=== PATIENT | male | born 1950 | race Caucasian/White ===

== ENCOUNTER 2019-01-29 09:00 | Observation (INO) ==
[2019-01-29] MEDS ORDERED: Naloxone 0.4 MG/ML INJ IVP PRN (09:42)
--- NOTE | 2019-01-29 09:46 | History & Physical Report ---
Date of Encounter: 01/29/19 Time of Encounter: 09:45 24 Hour HP Update - Instructions Instructions: If the History and Physical is less than 30 days old and was completed prior to A.M. admission and or procedure and has NOT been updated on calendar day of procedure please complete this update prior to performing procedure. - Update Patient reports changes in Medical Condition: No Changes in examination, assessment, or condition: No Changes in Medication: No Preop tests/diagnostics Reviewed: Yes Additions to current History and Physical: direct admit by Dr. Pickard for [email or web address]
[2019-01-29 10:33] LABS: Hematocrit 43.8 % (37.5-50.1); Hemoglobin 14.8 g/dL (12.9-16.9); Mean Corpuscular HGB Conc 33.8 g/dL (31.6-35.5); Mean Corpuscular Hemoglobin 32.3 pg (28.0-33.3); Mean Corpuscular Volume 95.6 fL (83.0-100.0); Mean Platelet Volume 10.1 fL (9.4-12.4); Platelet Count 200 K/mcL (140-400); Red Blood Count 4.58 M/mcL (4.19-5.50); Red Cell Distribution Width 12.1 % (11.5-14.5)
[2019-01-29 10:49] LABS: BUN/Creatinine Ratio 15 (6-26); Blood Urea Nitrogen 12 mg/dL (8-23); Calcium 9.3 mg/dL (8.6-10.3); Carbon Dioxide 30 mEq/L (23-29); Chloride 106 mEq/L (98-107); Glucose 106 mg/dL (70-105); Osmolality,Calculated 292 (280-300); Potassium 4.2 mEq/L (3.5-5.1); Sodium 141 mEq/L (136-145); eGFR For African Americans > 60 (> 60); eGFR For Non-African Americans > 60 (> 60)
[2019-01-29] MEDS ORDERED: Apixaban 5 MG TABLET PO SCH ×2 (11:00→21:00)
--- NOTE | 2019-01-29 13:51 | Electrocardiograph Report ---
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
[2019-01-29] MEDS: Apixaban 5 MG TABLET PO SCH (18:16)
[2019-01-30] MEDS: Apixaban 5 MG TABLET PO SCH ×2 (05:56→18:10)
--- NOTE | 2019-01-30 09:40 | Electrophysiology ProgressNote ---
Date of Encounter: 01/30/19 Time of Encounter: 08:12 Assessment and Plan (1) PAF (paroxysmal atrial fibrillation) Current Visit: Yes Status: Chronic Per EP: Remains sinus rhythm on exam. ECG reviewed shows sinus rhythm with QRS stable at 102 ms. Status post 3 doses of Rythmol 150 mg by mouth every 8 hours. Will make nothing by mouth after midnight in case would warrant cardioversion tomorrow, of note would need EVAN prior since on anticoagulation for only one week. Anticipate discharge home tomorrow. Labs stable. Regarding long-term anticoagulation, started on Eliquis 5mg PO BID now one week ago. Denies any active bleeding or blood loss. Discussion w patient/family: The assessment and plan as outlined above was discussed with the patient and/or family members who expressed understanding and agreement. All questions were answered. Thank you for involving us in the care of your patient. Please call with any questions. Subjective Principal diagnosis: PAF Interval history: Denies any concerns or complaints overnight. Denies any chest pain, short of breath, palpitations. Denies any active bleeding or blood loss. Objective Vital Signs, Last 4 Hours Temp Pulse Resp BP Pulse Ox 01/30/19 08:23 97.5 F L 61 17 137/83 98 01/30/19 05:58 97.7 F 68 17 120/71 97 General: Conversant, No Apparent Distress HEENT: Atraumatic, Normocephaly, Mucus Membranes Moist Neck: No JVD, Normal carotid pulses Cardiac: Reg Rate and Rhythm, Normal S1 and S2, No Murmur Lungs: Normal Breath Sounds, No Wheeze, Rales, Rhonchi Neuro: Alert and responsive, No focal deficits noted Abdomen: Soft, Non-Tender Skin: No rashes noted on visualized skin Musculoskeletal: No Chest Wall Tenderness Extremities: No Clubbing, No Cyanosis, No Edema, Normal Pulses Results 01/29/19 10:00 01/29/19 10:00 Lab Results Laboratory Tests 01/29/19 01/29/19 01/29/19 10:00 10:00 10:00 Hgb 14.8 Hct 43.8 Creatinine 0.79 Est GFR (Non-Af Amer) > 60 Magnesium 2.5 Active Medications Apixaban (Eliquis) 5 mg PO 0600,1800 [facility]; Protocol Stop: 07/31/19 18:01 Last Admin: 01/30/19 05:56 Dose: 5 mg Documented by: Metoprolol Tartrate (Lopressor) 25 mg PO BID [facility] Stop: 07/31/19 21:01 Last Admin: 01/29/19 21:07 Dose: 25 mg Documented by: Naloxone HCl (Narcan) 0.4 mg IVP Q2MPRN PRN PRN Reason: SEE COMMENTS Stop: 07/31/19 09:43 Omeprazole (Prilosec) 20 mg PO DAILY@0730 PRN PRN Reason: Heartburn Stop: 07/31/19 10:50 Propafenone HCl (Rhythmol) 150 mg PO Q8H [facility] Stop: 07/31/19 11:01 Last Admin: 01/30/19 03:08 Dose: 150 mg Documented by: - VTE Reasons for not Prescribing Prophylaxis: Not indicated-Anticoagulated or INR therapeutic Consult Discharge Plan - Plan Referrals: NONE,PCP [Primary Care Provider] -
--- NOTE | 2019-01-30 16:19 | Electrocardiograph Report ---
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
[2019-01-31] MEDS: Apixaban 5 MG TABLET PO SCH (05:11)
--- NOTE | 2019-01-31 09:53 | Electrophysiology ProgressNote ---
Date of Encounter: 01/31/19 Time of Encounter: 09:50 Assessment and Plan Discussion w patient/family: The assessment and plan as outlined above was discussed with the patient and/or family members who expressed understanding and agreement. All questions were answered. Thank you for involving us in the care of your patient. Please call with any questions. Subjective Principal diagnosis: PAF Interval history: No acute complaints this AM. Objective Vital Signs, Last 4 Hours Temp Pulse Resp BP Pulse Ox 01/31/19 07:49 97.5 F L 66 18 108/71 97 Vital Signs Temp Pulse Resp BP Pulse Ox 01/31/19 07:49 97.5 F L 66 18 108/71 97 01/31/19 04:51 98 F 66 14 102/64 99 01/31/19 00:21 97.8 F 69 18 119/71 99 01/30/19 19:56 98 F 67 16 129/75 99 01/30/19 16:57 98.1 F 67 16 131/81 99 01/30/19 11:52 97.8 F 62 17 132/79 98 Intake and Output 01/30/19 01/31/19 01/31/19 23:59 07:59 15:59 Other: # Voids 1 General: Conversant HEENT: Atraumatic, Normocephaly, Mucus Membranes Moist Neck: No JVD, Normal carotid pulses Cardiac: Reg Rate and Rhythm, Normal S1 and S2, No Murmur Lungs: Normal Breath Sounds, No Wheeze, Rales, Rhonchi Neuro: Alert and responsive, No focal deficits noted Abdomen: Soft, Non-Tender Skin: No rashes noted on visualized skin Musculoskeletal: No Chest Wall Tenderness Extremities: No Clubbing, No Cyanosis, No Edema, Normal Pulses Results 01/29/19 10:00 01/29/19 10:00 Active Medications Apixaban (Eliquis) 5 mg PO 0600,1800 [facility]; Protocol Stop: 07/31/19 18:01 Last Admin: 01/31/19 05:11 Dose: 5 mg Documented by: Metoprolol Tartrate (Lopressor) 25 mg PO BID [facility] Stop: 07/31/19 21:01 Last Admin: 01/30/19 20:42 Dose: 25 mg Documented by: Naloxone HCl (Narcan) 0.4 mg IVP Q2MPRN PRN PRN Reason: SEE COMMENTS Stop: 07/31/19 09:43 Omeprazole (Prilosec) 20 mg PO DAILY@0730 PRN PRN Reason: Heartburn Stop: 07/31/19 10:50 Propafenone HCl (Rhythmol) 150 mg PO Q8H [facility] Stop: 07/31/19 11:01 Last Admin: 01/31/19 03:07 Dose: 150 mg Documented by: - EKG Interpretation EKG results cardiology: other (12 hr tele AVG HR 64, SR) - VTE Reasons for not Prescribing Prophylaxis: Not indicated-Anticoagulated or INR therapeutic Consult Discharge Plan - Plan Referrals: NONE,PCP [Primary Care Provider] -
--- NOTE | 2019-01-31 09:54 | Discharge Summary ---
Date of Encounter: 01/31/19 - Hospital Course Hospital course: Mr. Coles is a 68 year old male - Time Spent with Patient Total time spent providing and/or coordinating discharge services: - Discharge Medications Prescriptions: No Action Tizanidine HCl 4 mg PO BID PRN PRN Reason: Muscle Spasm Multivitamin [One Daily Multivitamin] 1 tab PO DAILY FSH/Flx/Prm/Blk/Bor/Om3,6,9 #6 [Mfli-Tgis-Adlkyk Oils Softgel] 800 mg PO DAILY Aspirin [Lo-Dose Aspirin EC] 81 mg PO DAILY Apixaban [Eliquis] 5 mg PO Q12H Metoprolol [Lopressor] 25 mg PO BID Omeprazole [PriLOSEC] 20 mg PO DAILY PRN PRN Reason: Indigestion Home Medications: Tizanidine HCl 4 mg PO BID PRN 08/06/16 [History] Apixaban [Eliquis] 5 mg PO Q12H 01/29/19 [History] Aspirin [Lo-Dose Aspirin EC] 81 mg PO DAILY 01/29/19 [History] FSH/Flx/Prm/Blk/Bor/Om3,6,9 #6 [Naji-Nalu-Sdhxbr Oils Softgel] 800 mg PO DAILY 01/29/19 [History] Metoprolol [Lopressor] 25 mg PO BID 01/29/19 [History] Multivitamin [One Daily Multivitamin] 1 tab PO DAILY 01/29/19 [History] Omeprazole [PriLOSEC] 20 mg PO DAILY PRN 01/29/19 [History] Allergies/Adverse Reactions: Allergy/AdvReac Type Severity Reaction Status Date / Time No Known Allergies Allergy Verified 06/02/17 10:36 Date of admission: 01/29/19 09:18 Primary care physician: PCP NONE Physical Examination Vital Signs, Last 4 Hours Temp Pulse Resp BP Pulse Ox 01/31/19 07:49 97.5 F L 66 18 108/71 97 - Discharge Instructions Follow Up With: NONE,PCP [Primary Care Provider] - - VTE Reasons for not Prescribing Prophylaxis: Not indicated-Anticoagulated or INR therapeutic
--- NOTE | 2019-01-31 10:00 | Discharge Summary ---
Date of Encounter: 01/31/19 Time of Encounter: 09:57 - Discharge Diagnosis (1) PAF (paroxysmal atrial fibrillation) Priority: Primary Status: Chronic - Hospital Course Hospital course: Mr. Coles is a 68 year old male with PAF that presented for rythmol initiation--150mg [id number]. S/P 6 doses, maintaining SR. Daily ECGs stable QRS. D/C home in stable condition. Continue BB. Regarding long-term anticoagulation, started on Eliquis 5mg PO BID now one week ago. Denies any active bleeding or blood loss. Will coordinate outpt follow-up in 3-4 weeks. - Time Spent with Patient Total time spent providing and/or coordinating discharge services: Less than 30 minutes - Discharge Medications Prescriptions: New Propafenone [Rhythmol] 150 mg PO Q8H #90 tablet Continued Tizanidine HCl 4 mg PO BID PRN PRN Reason: Muscle Spasm Multivitamin [One Daily Multivitamin] 1 tab PO DAILY FSH/Flx/Prm/Blk/Bor/Om3,6,9 #6 [Otmt-Lxfs-Zaskux Oils Softgel] 800 mg PO DAILY Aspirin [Lo-Dose Aspirin EC] 81 mg PO DAILY Apixaban [Eliquis] 5 mg PO Q12H Omeprazole [PriLOSEC] 20 mg PO DAILY PRN PRN Reason: Indigestion Metoprolol [Lopressor] 25 mg PO BID #60 tablet Home Medications: Tizanidine HCl 4 mg PO BID PRN 08/06/16 [History] Apixaban [Eliquis] 5 mg PO Q12H 01/29/19 [History] Aspirin [Lo-Dose Aspirin EC] 81 mg PO DAILY 01/29/19 [History] FSH/Flx/Prm/Blk/Bor/Om3,6,9 #6 [Iijr-Wyye-Kdpazb Oils Softgel] 800 mg PO DAILY 01/29/19 [History] Multivitamin [One Daily Multivitamin] 1 tab PO DAILY 01/29/19 [History] Omeprazole [PriLOSEC] 20 mg PO DAILY PRN 01/29/19 [History] Metoprolol [Lopressor] 25 mg PO BID #60 tablet 01/31/19 [Rx] Propafenone [Rhythmol] 150 mg PO Q8H #90 tablet 01/31/19 [Rx] Allergies/Adverse Reactions: Allergy/AdvReac Type Severity Reaction Status Date / Time No Known Allergies Allergy Verified 06/02/17 10:36 Date of admission: 01/29/19 09:18 Primary care physician: PCP NONE Discharging clinician: Shahid Bucio Anticipated date of discharge: 01/31/19 Physical Examination Vital Signs, Last 4 Hours Temp Pulse Resp BP Pulse Ox 01/31/19 07:49 97.5 F L 66 18 108/71 97 Vital Signs Temp Pulse Resp BP Pulse Ox 01/31/19 07:49 97.5 F L 66 18 108/71 97 01/31/19 04:51 98 F 66 14 102/64 99 01/31/19 00:21 97.8 F 69 18 119/71 99 01/30/19 19:56 98 F 67 16 129/75 99 01/30/19 16:57 98.1 F 67 16 131/81 99 01/30/19 11:52 97.8 F 62 17 132/79 98 Intake and Output 01/30/19 01/31/19 01/31/19 23:59 07:59 15:59 Other: # Voids 1 General: Conversant, No Apparent Distress HEENT: Atraumatic, Normocephaly, Mucus Membranes Moist Neck: No JVD, Normal carotid pulses Cardiac: Reg Rate and Rhythm, Normal S1 and S2, No Murmur Lungs: Normal Breath Sounds, No Wheeze, Rales, Rhonchi Neuro: Alert and responsive, No focal deficits noted Abdomen: Soft, Non-Tender Skin: No rashes noted on visualized skin Musculoskeletal: No Chest Wall Tenderness Extremities: No Clubbing, No Cyanosis, No Edema, Normal Pulses - Patient Status Disposition: Home, Self-Care Condition: Fair Functional capacity at discharge: independent ambulation Overall status at discharge: patient is back to baseline - Discharge Instructions Follow Up With: NONE,PCP [Primary Care Provider] - - Diet and Activity Activity: increase activity as tolerated Diet: advance to your usual diet - VTE Reasons for not Prescribing Prophylaxis: Not indicated-Anticoagulated or INR therapeutic
[2019-01-31 11:33] VITALS: BP 120/73
--- NOTE | 2019-01-31 12:58 | Electrocardiograph Report ---
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
--- NOTE | 2019-01-31 13:12 | Electrocardiograph Report ---
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
== END 2019-01-31 11:42 | disposition home or self-care (01) ==
LOC: 2ANU
PROVIDERS: ADMIT Emergency Medicine; ATTEND Emergency Medicine

== ENCOUNTER 2019-02-26 10:09 | Observation (INO) ==
[2019-02-26] MEDS ORDERED: 0.9 % Sodium Chloride 1,000 ML IVC ONE ×2 (10:29→11:23)
[2019-02-26] MEDS ORDERED: *HR* Metoprolol 5 MG/5 ML VIAL IVP ONE (10:30)
[2019-02-26 11:00] LABS: Basophils % 0.3 %; Eosinophils # 0.2 K/mcL (0.0-0.6); Eosinophils % 2.1 %; Hematocrit 41.9 % (37.5-50.1); Hemoglobin 13.7 g/dL (12.9-16.9); Immature Granulocytes % 0.4 % (0-4); Lymphocytes # 0.9 K/mcL (0.6-4.6); Lymphocytes % 9.5 %; Mean Corpuscular HGB Conc 32.7 g/dL (31.6-35.5); Mean Corpuscular Hemoglobin 31.6 pg (28.0-33.3); Mean Corpuscular Volume 96.5 fL (83.0-100.0); Mean Platelet Volume 10.9 fL (9.4-12.4); Monocytes # 1.4 K/mcL (0.0-1.3); Monocytes % 14.6 %; Neutrophils # 7.1 K/mcL (1.6-8.9); Platelet Count 164 K/mcL (140-400); Red Blood Count 4.34 M/mcL (4.19-5.50); Red Cell Distribution Width 12.3 % (11.5-14.5); Segmented Neutrophils % 73.1 %; White Blood Count 9.7 K/mcL (4.3-11.1)
[2019-02-26 11:07] LABS: INR 1.7; Prothrombin Time 18.9 Seconds (9.4-12.1)
[2019-02-26 11:09] LABS: Activated Partial Thrombo Time 37.4 Seconds (26.0-36.0)
[2019-02-26 11:24] LABS: BUN/Creatinine Ratio 9 (6-26); Blood Urea Nitrogen 10 mg/dL (8-23); Calcium 9.2 mg/dL (8.6-10.3); Carbon Dioxide 25 mEq/L (23-29); Chloride 102 mEq/L (98-107); Glucose 121 mg/dL (70-105); Magnesium 2.2 mg/dL (1.6-2.6); Osmolality,Calculated 284 (280-300); Potassium 3.6 mEq/L (3.5-5.1); Sodium 137 mEq/L (136-145); Troponin I 0.03 ng/mL (< 0.04); eGFR For African Americans > 60 (> 60); eGFR For Non-African Americans > 60 (> 60)
[2019-02-26 12:22] LABS: Bilirubin,Urine Negative (Negative); Blood,Urine Negative (Negative); Clarity,Urine Clear (Clear); Color,Urine Yellow (Yellow); Glucose,Urine (UA) Normal (Normal); Ketones,Urine 40 mg/dL (Negative); Leukocyte Esterase,Urine Negative (Negative); Nitrite,Urine Negative (Negative); PH,Urine 6.5 pH Units (5.0-8.0); Protein,Urine Trace mg/dL (Neg-Trace); Specific Gravity,Urine 1.013 (1.010-1.025); Urobilinogen,Urine Normal (Normal)
--- NOTE | 2019-02-26 12:24 | Emergency Department Note ---
Disposition Clinical Impression: Atrial tachycardia, Palpitations, History of atrial fibrillation Disposition: Admitted As Inpatient Condition: Good Referrals: Aden Huerta MD [Primary Care Provider] - Time of Disposition: 12:27 General Adult HPI - General Chief complaint: ED Arrhythmia/Palpitations Stated complaint: A-FIB RVR Time Seen by Provider: 02/26/19 10:22 Source: patient Mode of arrival: ambulatory Limitations: no limitations Nursing Notes Reviewed: Yes Vital Signs Reviewed: Yes - History of Present Illness HPI Narrative: 68-year-old male presents emergency room for feelings it is just not feeling well. He saw his primary doctor this morning and they sent him over for tachycardia and flulike symptoms. Been ongoing for the past few days. States he can feel like his heart is been racing at times. He does have a history of paroxysmal atrial fibrillation. He does take Eliquis for this. He is also on metoprolol twice a day and propafenone. He denies any documented fevers. He does have a slight cough at times. No sputum production. Denies a sore throat. He does have some generalized malaise and body aches. Denies any urinary sy mptoms. No vomiting or diarrhea. No urinary complaints. No neck pain. Does have a slight intermittent headache. Pain Scale: 0 - Related Data Home Medications Medication Instructions Recorded Confirmed Apixaban [Eliquis] 5 mg PO Q12H 01/29/19 02/26/19 Aspirin [Lo-Dose Aspirin EC] 81 mg PO DAILY 01/29/19 02/26/19 FSH/Flx/Prm/Blk/Bor/Om3,6,9 #6 800 mg PO DAILY 01/29/19 02/26/19 [Vrac-Urso-Zpemab Oils Softgel] Multivitamin [One Daily 1 tab PO DAILY 01/29/19 02/26/19 Multivitamin] Omeprazole [PriLOSEC] 20 mg PO DAILY PRN 01/29/19 02/26/19 Previous Rx's Medication Instructions Recorded Metoprolol [Lopressor] 25 mg PO BID #60 tablet 01/31/19 Propafenone [Rhythmol] 150 mg PO Q8H #90 tablet 01/31/19 Allergies Allergy/AdvReac Type Severity Reaction Status Date / Time No Known Allergies Allergy Verified 06/02/17 10:36 All systems ED: reviewed and negative except as stated. Constitutional: Reports: other (malaise) Eyes: Reports: as per HPI Cardiovascular: Reports: chest pain, palpitations Respiratory: Reports: as per HPI Gastrointestinal: Reports: as per HPI Genitourinary: Reports: as per HPI Musculoskeletal: Reports: as per HPI Integumentary: Reports: as per HPI Neurological: Reports: headache Psychiatric: Reports: as per HPI Endocrine: Reports: as per HPI Hematological/Lymphatic: Reports: as per HPI Past Medical History - Past Medical History Medical history: Reports: non-contributory Psychiatric history: Reports: no psych history - Social History Smoking Status: Former smoker Smokeless Tobacco Status: No Alcohol use: Reports: occasionally Drug use: Reports: none Physical Exam - General General appearance: alert - Head Head exam: atraumatic, normocephalic - ENT ENT exam: normal exam - Chest Chest inspection: Present: normal inspection, symmetric chest wall rise - Respiratory Respiratory exam: Present: normal lung sounds bilaterally. Absent: respiratory distress, wheezes - Cardiovascular Cardiovascular exam: Present: regular rate, tachycardia - Abdominal Exam Abdominal exam: Present: soft, Non-Tender, normal bowel sounds - Extremities Exam Extremities exam: Present: normal inspection - Expanded Lower Extremity Exam Hip/Pelvis exam: Present: normal inspection. Absent: tenderness, swelling - Back Exam Back exam: Present: normal inspection - Neurological Exam Neurological exam: Present: alert, oriented X3 - Psychiatric Psychiatric exam: Present: normal affect, normal mood Course Vital Signs Temperature 98.5 F 02/26/19 10:18 Pulse Rate 123 02/26/19 10:18 Respiratory Rate 10 02/26/19 10:18 Blood Pressure 111/82 02/26/19 10:18 O2 Sat by Pulse Oximetry 98 02/26/19 10:18 Temperature 98.5 F 02/26/19 10:18 Pulse Rate 124 02/26/19 11:46 Respiratory Rate 14 02/26/19 10:42 Blood Pressure 94/72 02/26/19 11:46 O2 Sat by Pulse Oximetry 99 02/26/19 11:46 Oxygen Delivery Oxygen Delivery Room Air Medical Decision Making - MDM Narrative Medical decision making narrative: Patient's rate was regular on his EKG and there is obviously P waves seen. The rhythm seems to be more of an atrial tachycardia. I did discuss this with cardiology. In review of the chart we will place him on a low-dose Cardizem to see if this helps lower his heart rate. I did give him a low-dose of Lopressor initially which lowered his blood pressure in the 90s. He is asymptomatic at this time. We have ordered some IV fluids. He did get 1 L bolus. His chest x- ray did not show any obvious pneumonia or just of heart failure. His last ejection fraction was normal last year. Patient will be started on a low-dose Cardizem drip and will be admitted. I did discuss the case with the hospitalist as well. - Medical Records Medical records reviewed: Yes I reviewed the patient's medical records. - Lab Data Lab results reviewed: Yes I reviewed the patient's lab results. Result diagrams: 02/26/19 10:30 02/26/19 10:30 Lab Results 02/26/19 02/26/19 02/26/19 Range/Units 10:30 10:30 10:30 WBC 9.7 (4.3-11.1) K/mcL RBC 4.34 (4.19-5.50) M/mcL Hgb 13.7 (12.9-16.9) g/dL Hct 41.9 (37.5-50.1) % MCV 96.5 (83.0-100.0) fL MCH 31.6 (28.0-33.3) pg MCHC 32.7 (31.6-35.5) g/dL RDW 12.3 (11.5-14.5) % Plt Count 164 (140-400) K/mcL MPV 10.9 (9.4-12.4) fL Immature Gran % 0.4 (0-4) % Seg Neutrophils % 73.1 % Lymphocytes % 9.5 % Monocytes % 14.6 % Eosinophils % 2.1 % Basophils % 0.3 % Neutrophils # 7.1 (1.6-8.9) K/mcL Lymphocytes # 0.9 (0.6-4.6) K/mcL Monocytes # 1.4 H (0.0-1.3) K/mcL Eosinophils # 0.2 (0.0-0.6) K/mcL Basophils # 0.0 (0.0-0.2) K/mcL PT 18.9 H (9.4-12.1) Seconds INR 1.7 APTT 37.4 H (26.0-36.0) Seconds Sodium 137 (136-145) mEq/L Potassium 3.6 (3.5-5.1) mEq/L Chloride 102 (98-107) mEq/L Carbon Dioxide 25 (23-29) mEq/L BUN 10 (8-23) mg/dL Creatinine 1.07 (0.70-1.30) mg/dL Est GFR ( Amer) > 60 (> 60) Est GFR (Non-Af Amer) > 60 (> 60) BUN/Creatinine Ratio 9 (6-26) Glucose 121 H (70-105) mg/dL Calculated Osmolality 284 (280-300) Calcium 9.2 (8.6-10.3) mg/dL Magnesium 2.2 (1.6-2.6) mg/dL Troponin I 0.03 (< 0.04) ng/mL - Radiology Data Radiology results reviewed: Yes I reviewed the patient's radiology results. - EKG Data EKG #1 EKG attestation: Yes I reviewed and interpreted this EKG. EKG results narrative: Rate of 122. Atrial tachycardia. Left axis deviation. The 151. QRS 102. QTC 428. No signs acute ischemia. Patient likely has some rate demand ischemia in the lateral leads. No ST elevation. Critical Care Time Critical Care Time: Yes Total Critical Care Time: 35 Attestation: Critical care time of 35 minutes spent in consultation with hospitalist and ophthalmic technologist and monitoring of Cardizem drip
[2019-02-26] MEDS ORDERED: traMADol 50 MG TABLET PO PRN (13:19)
[2019-02-26] MEDS ORDERED: Ondansetron 4 MG/2 ML VIAL IVP PRN (13:19)
[2019-02-26] MEDS ORDERED: *HR* Promethazine 25 MG/ML VIAL IVP PRN (13:19)
[2019-02-26] MEDS ORDERED: Mag Hydrox/Al Hydrox/Simeth 30 ML UDC PO PRN (13:19)
[2019-02-26] MEDS ORDERED: Naloxone 0.4 MG/ML INJ IVP PRN (13:19)
[2019-02-26] MEDS ORDERED: Acetaminophen 325 MG TABLET PO PRN (13:19)
--- NOTE | 2019-02-26 13:25 | Internal Med History&Physical ---
Date of Encounter: 02/26/19 Time of Encounter: 13:24 Internal Medicine - H&P: HPI Admitted From: Home Plans for Post Hospital Care: Home History of present illness: Mr. Coles is a 68 year old male with Hx of atiral fibrillation presented with p alpitation and weakness. Pt stated that he was not feeling well since yesterday, reported fever at 100 this morning, with muscle ache and mild shortness of breath. He saw his primary doctor this morning and they sent him over for tachycardia and flulike symptoms. States he can feel like his heart is been racing at times. He does have a history of paroxysmal atrial fibrillation. He does take Eliquis for this. He is also on metoprolol twice a day and propafenone. He does have a slight cough at times. No sputum production. Denies a sore throat. Denies any urinary symptoms. No vomiting or diarrhea. No urinary complaints. No neck pain. Does have a slight intermittent headache. Denies taking Sudfed, drinking large amount of coffee, or being dehydrated. In the ED, HR was about 130, ekg showed atrial flutter with variable conduction. He was started on Cardizem gtt. Cardiology was consulted. He is admitted for further evaluation. Code status discussed with patient and family, he will be full code while in the hospital. Past Med Surg Social Fam HX - Past Medical History Medical history: non-contributory Additional medical history: HISTORY OF BLOOD CLOTS Psychiatric history: no psych history - Past Surgical History Additional surgical history: basket extraction of kidney stone - Social History Smoking Status: Former smoker Smokeless Tobacco Status: No Alcohol use: occasionally Drug use: none - Family History Father Living Status: Mother Living Status: Internal Medicine - H&P: Meds Apixaban [Eliquis] 5 mg PO Q12H 01/29/19 [History] Aspirin [Lo-Dose Aspirin EC] 81 mg PO DAILY 01/29/19 [History] FSH/Flx/Prm/Blk/Bor/Om3,6,9 #6 [Lgkk-Rist-Xpuyqc Oils Softgel] 800 mg PO DAILY 01/29/19 [History] Multivitamin [One Daily Multivitamin] 1 tab PO DAILY 01/29/19 [History] Omeprazole [PriLOSEC] 20 mg PO DAILY PRN 01/29/19 [History] Metoprolol [Lopressor] 25 mg PO BID #60 tablet 01/31/19 [Rx] Propafenone [Rhythmol] 150 mg PO Q8H #90 tablet 01/31/19 [Rx] Allergy/AdvReac Type Severity Reaction Status Date / Time No Known Allergies Allergy Verified 06/02/17 10:36 All Systems PM: A 10-system review of systems was performed and is negative for pertinent findings except as documented above in the HPI. Review of systems: REVIEW OF SYSTEMS: CONSTITUTIONAL: see HPI. HEENT: Eyes: No visual loss, blurred vision, double vision or yellow sclerae. Ears, Nose, Throat: No hearing loss, sneezing, congestion, runny nose or sore throat. SKIN: No rash or itching. CARDIOVASCULAR: No chest pain, chest pressure or chest discomfort. see HPI. RESPIRATORY: No shortness of breath, cough or sputum. GASTROINTESTINAL: No anorexia, nausea, vomiting or diarrhea. No abdominal pain or blood. GENITOURINARY: No dysuria, urgency, or frequency. NEUROLOGICAL: No headache, dizziness, syncope, paralysis, ataxia, numbness or tingling in the extremities. No change in bowel or bladder control. MUSCULOSKELETAL: No muscle, back pain, joint pain or stiffness. HEMATOLOGIC: No anemia, bleeding or bruising. LYMPHATICS: No enlarged nodes. No history of splenectomy. PSYCHIATRIC: No history of depression or anxiety. ENDOCRINOLOGIC: No reports of sweating, cold or heat intolerance. No polyuria or polydipsia. - Constitutional Vitals: Temp Pulse Resp BP Pulse Ox 99.0 F 127 14 98/79 98 02/26/19 12:28 02/26/19 12:58 02/26/19 10:42 02/26/19 12:58 02/26/19 12:58 General appearance: Present: A&O X 3 Exam: PHYSICAL EXAMINATION: GENERAL APPEARANCE: The patient is alert, oriented and in no acute distress. HEENT: Head is normocephalic. The sinuses are nontender. Pupils are equal and reactive. The nares are patent. Oropharynx clear without lesions. NECK: Supple without lymphadenopathy. HEART: Regular rate and rhythm. LUNGS: No crackles or wheezes are heard. ABDOMEN: Soft, nontender, nondistended with good bowel sounds heard. Inguinal area is normal. EXTREMITIES: Without cyanosis, clubbing or edema. NEUROLOGICAL: Gross nonfocal. SKIN: Warm and dry without any rash. Internal Med - H&P Results - Labs CBC & Chem 7: 02/26/19 10:30 02/26/19 10:30 Labs: Short CBC 02/26/19 Range/Units 10:30 WBC 9.7 (4.3-11.1) K/mcL Hgb 13.7 (12.9-16.9) g/dL Hct 41.9 (37.5-50.1) % Plt Count 164 (140-400) K/mcL Neutrophils # 7.1 (1.6-8.9) K/mcL BMP 02/26/19 10:30 Sodium 137 Potassium 3.6 Chloride 102 Carbon Dioxide 25 BUN 10 Creatinine 1.07 Glucose 121 H Calcium 9.2 Cardiac Enzymes 02/26/19 Range/Units 10:30 Troponin I 0.03 (< 0.04) ng/mL Urine 02/26/19 Range/Units 11:53 Urine Color Yellow (Yellow) Urine Clarity Clear (Clear) Urine pH 6.5 (5.0-8.0) pH Units Ur Specific [place] 1.013 (1.010-1.025) Urine Protein Trace (Neg-Trace) mg/dL Urine Glucose (UA) Normal (Normal) mg/dL - Impressions ITS Impressions Chest X-Ray 02/26/19 10:37 IMPRESSION: No evidence for acute cardiopulmonary process. D/ / 02/26/2019 10:40:09 Brenden Lopez MD / jesse Interpreting Provider: Brenden Lopez MD - Assessment and Plan (1) Atrial flutter Current Visit: Yes Status: Acute Assessment and plan: ECG showed aflutter with HR 120-130, on BB and rhythmol at home. Continue BB and rhythmol, continue cardizem gtt. Labs including TSH and trop. ECHO in am. Cardiology following. Qualifiers: Atrial flutter type: typical Qualified Code(s): I48.3 - Typical atrial flutter (2) History of atrial fibrillation Current Visit: No Status: Chronic Assessment and plan: Continue home meds including Eliquis, BB, and rhythmol. (3) DVT prophylaxis Current Visit: Yes Status: Acute Assessment and plan: On Eliquis. - Time Spent With Patient Total time spent is greater than 50% in coordination of care (as documented) at patient's floor/unit and/or counseling patient: Greater than 35 minutes
--- NOTE | 2019-02-26 14:34 | Cardiology Consult Note ---
<Shahid Bucio R - Last Filed: 02/26/19 14:59> Date of Encounter: 02/26/19 Time of Encounter: 14:15 Assessment and Plan (1) Atrial fibrillation and flutter Current Visit: Yes Status: Chronic Hx PAF/Fl. Recently started on Rythmol 150mg Q8H 01/2019. Reports he could tell he stayed in SR for ~10 days and has been noting PAF since that time. Presented to his PCP office this AM with fever, weakness, mild shortness of breath. PCP referred him to ED. Possible infectious process being worked up by primary team. Reports mild chest discomfort worse with deep inspiration. Troponin negative x 2. TTE 04/03/18: LVEF 55-60%. Normal left ventricular diastolic function. Normal RV structure and function. Mildly dilated LA. Mild TR. Nuclear stress test 03/31/18: Perfusion imaging negative for ischemia or infarct. Gated EF 70%. A-Flutter RVR HR 130s in ED and started on Cardizem gtt, currently at 10mg/hr. Hypotensive 80s/60s. Recommend decreasing cardizem gtt d/t hypotension. On Lopressor 25mg BID. K, Mag WNL. Check TSH. QTc on ECG 528ms, but in setting of tachycardia. Will repeat once HR has improved. Discussed with Dr. Galvez. Will increase Rythmol to 225mg Q8H. NPO after midnight tonight for possible DCCV tomorrow in attempt to restore SR. Anticoagulated on Eliquis, no missed doses in 30 days. EVAN will not be warranted. Plan for limited TTE to re-evaluate EF once rate controlled or in SR. Continue to follow. Discussion w patient/family: The assessment and plan as outlined above was discussed with the patient and/or family members who expressed understanding and agreement. All questions were an swered. Thank you for involving us in the care of your patient. Please call with any questions. I will discuss all the above with Dr. Galvez and make changes as necessary. History of Present Illness Consult date: 02/26/19 Consult reason: A-Fib RVR Chief complaint: chest pain, flu like symptoms History of present illness: Mr. Coles is a 68 year old male with PMH of PAF on Rythmol and Eliquis that presented to his PCP office this AM with fever, weakness. Pt stated that he was not feeling well since yesterday, reported fever at 100 this morning, with muscle aches and mild shortness of breath. PCP referred him to ED. Reports mild chest discomfort worse with deep inspiration. He was started on Rythmol ~ 1 month ago. Reports he could tell he stayed in SR for ~10 days and has been noting PAF since that time based on symptoms. In the ED, A-Flutter RVR and started on Cardizem gtt. Cardiology was consulted for further recs. Prior CV testing: TTE 04/03/18: LVEF 55-60%. Normal left ventricular diastolic function. Normal RV structure and function. Mildly dilated LA. Mild TR. Nuclear stress test 03/31/18: Perfusion imaging negative for ischemia or infarct. Gated EF 70%. Past Med Surg Social Fam HX - Past Medical History Medical history: atrial fibrillation, DVT, hypertension, kidney stones Additional medical history: HISTORY OF BLOOD CLOTS Psychiatric history: no psych history - Past Surgical History Additional surgical history: basket extraction of kidney stone - Social History Smoking Status: Former smoker Smokeless Tobacco Status: No Alcohol use: occasionally Drug use: none - Family History Father Living Status: Mother Living Status: Brother Living Status: Still Living Hx Family Cardiac Disorders: Yes Hx Family Medical Disorders: Yes Medications and Allergies Apixaban [Eliquis] 5 mg PO Q12H 01/29/19 [History] Aspirin [Lo-Dose Aspirin EC] 81 mg PO DAILY 01/29/19 [History] FSH/Flx/Prm/Blk/Bor/Om3,6,9 #6 [Shny-Wtqz-Akpqsd Oils Softgel] 800 mg PO DAILY 01/29/19 [History] Multivitamin [One Daily Multivitamin] 1 tab PO DAILY 01/29/19 [History] Omeprazole [PriLOSEC] 20 mg PO DAILY PRN 01/29/19 [History] Metoprolol [Lopressor] 25 mg PO BID #60 tablet 01/31/19 [Rx] Propafenone [Rhythmol] 150 mg PO Q8H #90 tablet 01/31/19 [Rx] Allergy/AdvReac Type Severity Reaction Status Date / Time No Known Allergies Allergy Verified 06/02/17 10:36 All Systems Review: The remainder of the systems were reviewed and are negative - Cardiovascular Cardiovascular: as per HPI, chest pain at rest, dyspnea at rest, palpitations - Respiratory Respiratory: cough, dyspnea Physical Examination Vital Signs, Last 4 Hours Temp Pulse Resp BP Pulse Ox 02/26/19 13:43 100.3 F H 141 16 91/76 97 02/26/19 12:58 127 98/79 98 02/26/19 12:28 99.0 F 131 98/79 96 02/26/19 11:46 124 94/72 99 02/26/19 10:42 104 14 96/75 98 02/26/19 10:38 120 14 106/76 100 02/26/19 10:18 98.5 F 123 10 111/82 98 Vital Signs Temp Pulse Resp BP Pulse Ox 02/26/19 13:43 100.3 F H 141 16 91/76 97 02/26/19 12:58 127 98/79 98 02/26/19 12:28 99.0 F 131 98/79 96 02/26/19 11:46 124 94/72 99 02/26/19 10:42 104 14 96/75 98 02/26/19 10:38 120 14 106/76 100 02/26/19 10:18 98.5 F 123 10 111/82 98 Intake and Output 02/25/19 02/26/19 02/26/19 23:59 07:59 15:59 Intake Total 2001. Balance Intake: IV Fluids 0.9 % Sodium Chloride 1,000 ML 1999 @ 3750 mls/hr IVC .Q16M ONE Rx# :[id number] Cardizem 50 MG In 0.9 % Sodium 2.2 / 2.2 Chloride 40 ML @ 5 MG/HR 5 mls/ hr IVC CONT CHELY Rx#:[id number] Other: Weight 74.1 kg Patient Weight 02/26/19 23:59 Weight 74.1 kg General: Conversant, No Apparent Distress HEENT: Atraumatic, Normocephaly, Mucus Membranes Moist Neck: No JVD, Normal carotid pulses Cardiac: Other (irregularly irregular) Lungs: Normal Breath Sounds, No Wheeze, Rales, Rhonchi Neuro: Alert and responsive, No focal deficits noted Abdomen: Soft, Non-Tender Skin: No rashes noted on visualized skin Musculoskeletal: No Chest Wall Tenderness Extremities: No Clubbing, No Cyanosis, No Edema, Normal Pulses Results 02/26/19 10:30 02/26/19 10:30 Lab Results 02/26/19 02/26/19 02/26/19 10:30 10:30 10:30 WBC 9.7 Hgb 13.7 Hct 41.9 Plt Count 164 INR 1.7 APTT 37.4 H Sodium 137 Potassium 3.6 Chloride 102 Carbon Dioxide 25 BUN 10 Creatinine 1.07 Glucose 121 H Calcium 9.2 Magnesium 2.2 Troponin I 0.03 Short CBC 02/26/19 Range/Units 10:30 WBC 9.7 (4.3-11.1) K/mcL Hgb 13.7 (12.9-16.9) g/dL Hct 41.9 (37.5-50.1) % Plt Count 164 (140-400) K/mcL Neutrophils # 7.1 (1.6-8.9) K/mcL BMP 02/26/19 Range/Units 10:30 Sodium 137 (136-145) mEq/L Potassium 3.6 (3.5-5.1) mEq/L Chloride 102 (98-107) mEq/L Carbon Dioxide 25 (23-29) mEq/L BUN 10 (8-23) mg/dL Creatinine 1.07 (0.70-1.30) mg/dL Glucose 121 H (70-105) mg/dL Calcium 9.2 (8.6-10.3) mg/dL Cardiac Enzymes 02/26/19 Range/Units 10:30 Troponin I 0.03 (< 0.04) ng/mL Urine 02/26/19 Range/Units 11:53 Urine Color Yellow (Yellow) Urine Clarity Clear (Clear) Urine pH 6.5 (5.0-8.0) pH Units Ur Specific [place] 1.013 (1.010-1.025) Urine Protein Trace (Neg-Trace) mg/dL Urine Glucose (UA) Normal (Normal) mg/dL Impressions Chest X-Ray 02/26/19 10:37 IMPRESSION: No evidence for acute cardiopulmonary process. D/ / 02/26/2019 10:40:09 Brenden Lopez MD / [facility] Interpreting Provider: Brenden Lopez MD Active Medications Acetaminophen (Tylenol) 650 mg PO Q6HR PRN PRN Reason: Mild Pain/Fever Stop: 08/28/19 13:20 Al Hydrox/Mg Hydrox/Simethicone (Maalox) 15 ml PO Q6HR PRN PRN Reason: Dyspepsia Stop: 08/28/19 13:20 Apixaban (Eliquis) 5 mg PO 0600,1800 [facility]; Protocol Stop: 08/28/19 18:01 Aspirin (Aspirin Ec) 81 mg PO DAILY [facility] Stop: 08/29/19 09:01 Docusate Sodium (Colace) 100 mg PO BID [facility] Stop: 08/28/19 21:01 Diltiazem HCl 50 mg/ Sodium (Chloride) 50 mls @ 5 mls/hr IVC CONT [facility]; Protocol Stop: 08/28/19 11:46 Last Infusion: 02/26/19 12:57 Dose: 10 mg/hr, 10 mls/hr Documented by: Metoprolol Tartrate (Lopressor) 25 mg PO BID [facility] Stop: 08/28/19 21:01 Multivitamins/Calcium (Thera M Plus) 1 tab PO DAILY [facility] Stop: 08/29/19 09:01 Naloxone HCl (Narcan) 0.4 mg IVP Q2MPRN PRN PRN Reason: SEE COMMENTS Stop: 08/28/19 13:20 Omeprazole (Prilosec) 20 mg PO DAILY PRN; Protocol PRN Reason: Indigestion Stop: 08/28/19 13:18 Ondansetron HCl (Zofran) 4 mg IVP Q8HR PRN PRN Reason: Nausea And Vomiting Stop: 08/28/19 13:20 Promethazine HCl (Phenergan) 12.5 mg IVP Q6HR PRN PRN Reason: Nausea And Vomiting Stop: 08/28/19 13:20 Propafenone HCl (Rhythmol) 150 mg PO Q8H [facility] Stop: 08/28/19 14:01 Tramadol HCl (Ultram) 50 mg PO Q6HR PRN PRN Reason: Moderate Pain Stop: 08/28/19 13:20 - Imaging and Cardiology Stress Test: report reviewed Echo: report reviewed - EKG Interpretation EKG results cardiology: personally reviewed Consult Discharge Plan - Plan Referrals: Aden Huerta MD [Primary Care Provider] - <Rogers Galvez - Last Filed: 02/26/19 20:56> Date of Encounter: 02/26/19 - Attending Attestation I have personally performed a face to face evaluation on this patient. I have reviewed and agree with the documented findings and care plan as documented by the CHIEF II DISPATCHER. History and Exam by me shows: Echocardiogram shows preserved ejection fraction. I agree with continuation of rhythm control strategy with propafenone and cardizem, and possible cardioversion tomorrow if patient remains in atrial flutter. Continue anticoagulation with Eliquis 5 mg twice a day. Thanks for the consult, please call with questions. Rogers Galvez MD [facility] Assessment and Plan Discussion w patient/family: The assessment and plan as outlined above was discussed with the patient and/or family members who expressed understanding and agreement. All questions were answered. Thank you for involving us in the care of your patient. Please call with any questions. History of Present Illness History of present illness: Mr. Coles is a 68 year old male All Systems Review: The remainder of the systems were reviewed and are negative Results 02/26/19 10:30 02/26/19 10:30 Lab Results 02/26/19 02/26/19 02/26/19 10:30 10:30 10:30 WBC 9.7 Hgb 13.7 Hct 41.9 Plt Count 164 INR 1.7 APTT 37.4 H Sodium 137 Potassium 3.6 Chloride 102 Carbon Dioxide 25 BUN 10 Creatinine 1.07 Glucose 121 H Calcium 9.2 Magnesium 2.2 Troponin I 0.03 02/26/19 02/26/19 13:55 16:40 WBC Hgb Hct Plt Count INR APTT Sodium Potassium Chloride Carbon Dioxide BUN Creatinine Glucose Calcium Magnesium Troponin I 0.03 < 0.03
[2019-02-26 16:21] LABS: Adenovirus Not Detected (Not Detect); Bordetella Pertussis Not Detected (Not Detect); Chlamydophila pneumoniae Not Detected (Not Detect); Coronavirus 229E Not Detected (Not Detect); Coronavirus HKU1 Not Detected (Not Detect); Coronavirus NL63 Not Detected (Not Detect); Coronavirus OC43 Not Detected (Not Detect); Human Metapneumovirus Not Detected (Not Detect); Human Rhinovirus/Enterovirus Not Detected (Not Detect); Influenza A Subtype 2009 H1 Not Detected (Not Detect); Influenza A Untypeable Not Detected (Not Detect); Influenza B Not Detected (Not Detect); Mycoplasma pneumoniae Not Detected (Not Detect); Parainfluenza Virus 1 Not Detected (Not Detect); Parainfluenza Virus 2 Not Detected (Not Detect); Parainfluenza Virus 3 Not Detected (Not Detect); Parainfluenza Virus 4 Not Detected (Not Detect); Respiratory Syncytial Virus Not Detected (Not Detect)
[2019-02-26] MEDS: Apixaban 5 MG TABLET PO SCH (17:41)
[2019-02-27] MEDS ORDERED: 0.9 % Sodium Chloride 250 ML IVC ONE (01:38)
[2019-02-27 05:47] LABS: Hematocrit 34.5 % (37.5-50.1); Mean Corpuscular HGB Conc 32.8 g/dL (31.6-35.5); Mean Corpuscular Hemoglobin 31.8 pg (28.0-33.3); Mean Corpuscular Volume 97.2 fL (83.0-100.0); Mean Platelet Volume 10.7 fL (9.4-12.4); Platelet Count 136 K/mcL (140-400); Red Blood Count 3.55 M/mcL (4.19-5.50); Red Cell Distribution Width 12.4 % (11.5-14.5); White Blood Count 8.3 K/mcL (4.3-11.1)
[2019-02-27 05:50] LABS: Hemoglobin 11.3 g/dL (12.9-16.9)
[2019-02-27 06:10] LABS: Alanine Aminotransferase 37 Units/L (7-52); Albumin 3.4 g/dL (3.5-5.7); Albumin/Globulin Ratio 1.5 (1.1-2.2); Alkaline Phosphatase 98 Units/L (34-104); Aspartate Amino Transferase 26 Units/L (13-39); BUN/Creatinine Ratio 14 (6-26); Bilirubin,Total 2.5 mg/dL (0.3-1.0); Blood Urea Nitrogen 13 mg/dL (8-23); Calcium 8.3 mg/dL (8.6-10.3); Carbon Dioxide 23 mEq/L (23-29); Chloride 106 mEq/L (98-107); Globulin 2.2 g/dL (2.4-3.5); Glucose 113 mg/dL (70-105); Osmolality,Calculated 285 (280-300); Sodium 137 mEq/L (136-145); Total Protein 5.6 g/dL (6.4-8.9); eGFR For African Americans > 60 (> 60); eGFR For Non-African Americans > 60 (> 60)
[2019-02-27 06:21] LABS: Thyroid Stimulating Hormone 1.824 mcIU/mL (0.340-5.600)
[2019-02-27] MEDS: Apixaban 5 MG TABLET PO SCH ×2 (06:37→17:50)
[2019-02-27] MEDS ORDERED: [UNRECOGNIZED DRUG - OTHER] PO SCH (09:00)
--- NOTE | 2019-02-27 09:30 | Event Note ---
Date of Encounter: 02/27/19 Time of Encounter: 09:28 - Cardiology Event Note Pt remains A-Fib RVR s/p 3 doses of increased Rythmol. ECG ordered for QRS monitoring. Hypotensive. Discussed and reviewed with Dr. Galvez. DCCV today in attempt to restore SR. Anticoagulated on Eliquis with no missed doses in the past 30 days. EVAN not warranted. R/B/A discussed and pt agrees to proceed.
[2019-02-27] MEDS: 0.9 % Sodium Chloride 1,000 ML IVC SCH ×2 (13:13→16:55)
[2019-02-27] MEDS ORDERED: *HR* FentaNYL (PF) 100 MCG/2 ML VIAL IVP PRN (13:32)
[2019-02-27] MEDS ORDERED: 0.9 % Sodium Chloride 500 ML IVC SCH (13:45)
[2019-02-27] MEDS ORDERED: *HR* FentaNYL (PF) 100 MCG/2 ML VIAL ONE (13:59)
[2019-02-27] MEDS ORDERED: *HR* Midazolam HCl 2 MG/2 ML VIAL ONE (14:03)
[2019-02-27] MEDS: *HR* Midazolam HCl 2 MG/2 ML VIAL IVP PRN ×2 (14:42→14:47)
[2019-02-27] MEDS: Aspirin Enteric Coated 81 MG Tablet PO SCH (16:07)
[2019-02-27] MEDS: Multivit/Ca/Min/Fe/FA 1 TAB TABLET PO SCH (16:08)
--- NOTE | 2019-02-27 16:45 | Internal Med Progress Note ---
Hospitalist Progress Note - Encounter Date of Encounter: 02/27/19 Time of Encounter: 16:42 - Subjective Interval History: I have seen and evaluated the patient at bedside. reports feeling better, denies chest pain, light headedness or shortness of breath. reports mild chest discomfort with deep inspiration. - Exam Vitals: Temp Pulse Resp BP Pulse Ox 98.9 F 128 14 117/86 96 02/27/19 08:00 02/27/19 15:42 02/27/19 15:42 02/27/19 15:42 02/27/19 08:00 Exam: Vitals: Reviewed General: Alert and oriented x4. In no distress Cardiovascular: Irregularly irregular, normal S1 & S2, no rubs, murmurs or gallops. Lungs: CTA b/l, no wheezes or crackles. Abdomen: Soft, non-tender, no rigidity. NABS in all 4 quadrants. Extremities: No edema Neurological: No focal neurological abnormalities. Rest of the physical exam is non contributory - Assessment and Plan (1) Atrial flutter Current Visit: Yes Status: Acute Assessment and Plan: Patient scheduled for cardioversion. continue on cardizem drip, titrate per protocol. will resume home dose of metoprolol, and propafenone. on Apixaban for secondary stroke prevention. cardiology recommendations appreciated. patient reported low grade fever 2 days ago. no signs of active infection, no meningeal signs. will monitor clinically, if patient spikes a fever will consider started empiric broad spectrum IV antibiotics. DVT Prophylaxis: Intermittent pneumatic compression for dvt prophylaxis. - Summary of Assessment and Plan Summary of Assessment and Plan: patient to remain in the hospital due to A.flutter on a cardizem drip. - Time Spent with Patient Total time spent is greater than 50% in coordination of care (as documented) at patient's floor/unit and/or counseling patient: Greater than 35 minutes (40) Plan of Care Discussed with: patient (his and the nurse.) Internal Medicine: Result - Labs CBC & Chem 7: 02/27/19 04:38 02/27/19 04:38 Labs: Short CBC 02/27/19 Range/Units 04:38 WBC 8.3 (4.3-11.1) K/mcL Hgb 11.3 L D (12.9-16.9) g/dL Hct 34.5 L (37.5-50.1) % Plt Count 136 L (140-400) K/mcL BMP 02/27/19 04:38 Sodium 137 Potassium 4.0 Chloride 106 Carbon Dioxide 23 BUN 13 Creatinine 0.96 Glucose 113 H Calcium 8.3 L Cardiac Enzymes 02/26/19 Range/Units 16:40 Troponin I < 0.03 (< 0.04) ng/mL Liver Function 02/27/19 Range/Units 04:38 Total Bilirubin 2.5 H (0.3-1.0) mg/dL AST 26 (13-39) Units/L ALT 37 (7-52) Units/L Alkaline Phosphatase 98 (34-104) Units/L Albumin 3.4 L (3.5-5.7) g/dL - ABG Interpretation ABG results: PT/INR, D-dimer PT 18.9 Seconds (9.4-12.1) H 02/26/19 10:30 Consult Discharge Plan - Plan Referrals: Aden Huerta MD [Primary Care Provider] - (1) Atrial flutter Qualifiers: Atrial flutter type: typical Qualified Code(s): I48.3 - Typical atrial flutter
--- NOTE | 2019-02-27 18:38 | Procedure Note ---
Date of procedure: 02/27/19 Pre-op diagnosis: Atrial flutter Post-op diagnosis: other (Atrial tachycardia) Procedure: Direct current cardioversion. The procedure was extensively explained patient in detail including conscious sedation with intravenous anxiolytic and analgesic. Benefits and risks including chest discomfort and rare risk of embolic stroke, were explained to the patient and he wishes to proceed. Intravenous sedation was administered. The patient was given moderate IV sedation with total of 5 mg of Versed and 25 mg of fentanyl, by a dedicated nurse under my [id number] supervision using physiologic monitoring for a total intra service time of 20 minutes. Once adequate sedation was achieved, synchronized direct current cardioversion was administered with 150 J. Improved rate control with atrial tachycardia was achieved after one attempt. Following this, IV amiodarone 150mg was administered over 10 minutes to possibly help restore full sinus rhythm. Patient tolerated procedure well. Anesthesia: IV sedation Surgeon: Rogers Galvez (Bag Grader proceduralist) Was there an support assistant present: No Estimated blood loss (cc): 0 Specimen: None Pathology: other (N/A) Condition: stable Disposition: no change
[2019-02-28 04:40] LABS: Basophils % 0.4 %; Eosinophils % 0.6 %; Hematocrit 34.3 % (37.5-50.1); Hemoglobin 11.3 g/dL (12.9-16.9); Immature Granulocytes % 0.7 % (0-4); Lymphocytes % 14.1 %; Mean Corpuscular HGB Conc 32.9 g/dL (31.6-35.5); Mean Corpuscular Hemoglobin 32.6 pg (28.0-33.3); Mean Corpuscular Volume 98.8 fL (83.0-100.0); Mean Platelet Volume 10.9 fL (9.4-12.4); Monocytes % 14.1 %; Neutrophils # 4.8 K/mcL (1.6-8.9); Platelet Count 152 K/mcL (140-400); Red Blood Count 3.47 M/mcL (4.19-5.50); Red Cell Distribution Width 12.7 % (11.5-14.5); Segmented Neutrophils % 70.1 %; White Blood Count 6.8 K/mcL (4.3-11.1)
[2019-02-28 05:00] LABS: BUN/Creatinine Ratio 15 (6-26); Blood Urea Nitrogen 19 mg/dL (8-23); Calcium 8.3 mg/dL (8.6-10.3); Carbon Dioxide 23 mEq/L (23-29); Chloride 105 mEq/L (98-107); Glucose 146 mg/dL (70-105); Magnesium 2.2 mg/dL (1.6-2.6); Osmolality,Calculated 289 (280-300); Phosphorous 2.7 mg/dL (2.7-4.5); Potassium 4.7 mEq/L (3.5-5.1); Sodium 137 mEq/L (136-145); eGFR For African Americans > 60 (> 60); eGFR For Non-African Americans 55 (> 60)
[2019-02-28] MEDS: Apixaban 5 MG TABLET PO SCH (05:43)
[2019-02-28] MEDS: 0.9 % Sodium Chloride 1,000 ML IVC SCH (05:58)
[2019-02-28] MEDS ORDERED: Metoprolol XL (24 HR) Succ 25 MG TAB.ER.24H PO SCH (09:01)
[2019-02-28] MEDS: Multivit/Ca/Min/Fe/FA 1 TAB TABLET PO SCH (09:44)
[2019-02-28] MEDS: Aspirin Enteric Coated 81 MG Tablet PO SCH (09:44)
[2019-02-28 12:03] VITALS: BP 101/75
--- NOTE | 2019-02-28 12:49 | Cardiology Progress Note ---
Date of Encounter: 02/28/19 Time of Encounter: 12:44 Assessment and Plan (1) Atrial fibrillation and flutter Current Visit: Yes Status: Chronic Hx PAF/Fl. Recently started on Rythmol 150mg Q8H 01/2019. Reports he could tell he stayed in SR for ~10 days and has been noting PAF since that time. Presented to his PCP office with fever, weakness, mild shortness of breath. PCP referred him to ED. Troponin negative x 2. TTE LVEF 55%. Atypical septal motion consistent with bundle branch block. Normal RV structure and function. Mild TR. No phtn. Nuclear stress test 03/31/18: Perfusion imaging negative for ischemia or infarct. Gated EF 70%. A-Flutter RVR HR 130s in ED and started on Cardizem gtt without improvement. K, Mag WNL. Check TSH. Increased Rythmol to 225mg Q8H. Anticoagulated on Eliquis, no missed doses in 30 days. Underwent DCCV yesterday to atrial tach, given IV amio bolus. Now SR with frequent PACs. QRS on admission 02/26 102ms, 02/27 118ms, 02/[address] Galvez. Will decrease Rythmol dose to 225mg BID. Was on Lopressor 25mg BID. BP 90s systolic, reports dizziness/lightheadedness. Will transition/decrease to Toprol XL 25mg daily. Discussed and reviewed with Dr. Galvez. Will sign off. Okay to d/c home today on Rythmol 225mg BID and Toprol XL 25mg daily, Eliquis. Will coordinate outpt f/up in 1 week for outpt ECG. Cardiology signing off. Reconsult PRN> Discussion w patient/family: The assessment and plan as outlined above was discussed with the patient and/or family members who expressed understanding and agreement. All questions were answered. Thank you for involving us in the care of your patient. Please call with any questions. I will discuss all the above with Dr. Galvez and make changes as necessary. Subjective Principal diagnosis: PAFl Interval history: Pt reports intermittent dizziness/lightheadedness. Objective Vital Signs, Last 4 Hours Temp Pulse Resp BP Pulse Ox 02/28/19 12:02 98.2 F 85 18 101/75 97 Vital Signs Temp Pulse Pulse Pulse Pulse Pulse Pulse 02/28/19 12:02 98.2 F 85 02/28/19 07:54 97.9 F 86 02/28/19 04:11 97.6 F 92 02/28/19 00:55 97.6 F 101 02/27/19 21:06 97.6 F 97 02/27/19 16:43 98.4 F 107 02/27/19 15:42 128 130 130 131 91 Pulse Pulse Pulse Pulse Pulse Pulse Pulse 02/28/19 12:02 02/28/19 07:54 02/28/19 04:11 02/28/19 00:55 02/27/19 21:06 02/27/19 16:43 02/27/19 15:42 75 75 121 110 129 109 99 Pulse Pulse Pulse Pulse Pulse Pulse Resp 02/28/19 12:02 18 02/28/19 07:54 18 02/28/19 04:11 14 02/28/19 00:55 16 02/27/19 21:06 15 02/27/19 16:43 18 02/27/19 15:42 101 107 109 100 111 124 Resp Resp Resp Resp Resp Resp Resp 02/28/19 12:02 02/28/19 07:54 02/28/19 04:11 02/28/19 00:55 02/27/19 21:06 02/27/19 16:43 02/27/19 15:42 14 16 14 14 14 14 12 Resp Resp Resp Resp Resp Resp Resp 02/28/19 12:02 02/28/19 07:54 02/28/19 04:11 02/28/19 00:55 02/27/19 21:06 02/27/19 16:43 02/27/19 15:42 12 14 16 16 16 16 16 Resp Resp Resp BP BP BP BP 02/28/19 12:02 101/75 02/28/19 07:54 96/78 02/28/19 04:11 114/90 02/28/19 00:55 99/63 02/27/19 21:06 94/66 02/27/19 16:43 99/67 02/27/19 15:42 15 16 16 117/86 121/86 118/81 BP BP BP BP BP BP BP 02/28/19 12:02 02/28/19 07:54 02/28/19 04:11 02/28/19 00:55 02/27/19 21:06 02/27/19 16:43 02/27/19 15:42 118/82 88/77 106/88 91/69 106/88 79/63 94/71 BP BP BP BP BP BP BP 02/28/19 12:02 02/28/19 07:54 02/28/19 04:11 02/28/19 00:55 02/27/19 21:06 02/27/19 16:43 02/27/19 15:42 97/75 80/65 105/71 108/99 100/64 91/68 82/66 BP Pulse Ox 02/28/19 12:02 97 02/28/19 07:54 96 02/28/19 04:11 98 02/28/19 00:55 98 02/27/19 21:06 98 02/27/19 16:43 76 02/27/19 15:42 104/68 Intake and Output 02/27/19 02/28/19 02/28/19 23:59 07:59 15:59 Intake Total 1240 / 1510.5 1000 / 1600 600 / 1600 Output Total 0 / 300 200 / 200 Balance 1240 / 1210.5 800 / 1400 600 / 1400 Intake: IV Fluids 1000 / 1270.5 1000 / 1000 0.9 % Sodium Chloride 1,000 ML 1000 / 1000 1000 / 1000 @ 75 mls/hr IVC .[id number] [facility] Rx #:[id number] Oral 240 / 240 0 / 600 600 / 600 Output: Urine 0 / 300 200 / 200 Other: Meal Dinner Breakfast Percent of Meal Consumed 75% 100% Weight 77.4 kg Patient Weight 02/28/19 23:59 Weight 77.4 kg General: Conversant, No Apparent Distress HEENT: Atraumatic, Normocephaly, Mucus Membranes Moist Neck: No JVD, Normal carotid pulses Cardiac: Reg Rate and Rhythm, Normal S1 and S2, No Murmur Lungs: Normal Breath Sounds, No Wheeze, Rales, Rhonchi Neuro: Alert and responsive, No focal deficits noted Abdomen: Soft, Non-Tender Skin: No rashes noted on visualized skin Musculoskeletal: No Chest Wall Tenderness Extremities: No Clubbing, No Cyanosis, No Edema, Normal Pulses Results 02/28/19 04:06 02/28/19 04:06 Lab Results 02/28/19 02/28/19 04:06 04:06 WBC 6.8 Hgb 11.3 L Hct 34.3 L Plt Count 152 Sodium 137 Potassium 4.7 Chloride 105 Carbon Dioxide 23 BUN 19 Creatinine 1.30 Glucose 146 H Calcium 8.3 L Magnesium 2.2 Short CBC 02/28/19 Range/Units 04:06 WBC 6.8 (4.3-11.1) K/mcL Hgb 11.3 L (12.9-16.9) g/dL Hct 34.3 L (37.5-50.1) % Plt Count 152 (140-400) K/mcL Neutrophils # 4.8 (1.6-8.9) K/mcL BMP 02/28/19 Range/Units 04:06 Sodium 137 (136-145) mEq/L Potassium 4.7 (3.5-5.1) mEq/L Chloride 105 (98-107) mEq/L Carbon Dioxide 23 (23-29) mEq/L BUN 19 (8-23) mg/dL Creatinine 1.30 (0.70-1.30) mg/dL Glucose 146 H (70-105) mg/dL Calcium 8.3 L (8.6-10.3) mg/dL Active Medications Acetaminophen (Tylenol) 650 mg PO Q6HR PRN PRN Reason: Mild Pain/Fever Stop: 08/28/19 13:20 Al Hydrox/Mg Hydrox/Simethicone (Maalox) 15 ml PO Q6HR PRN PRN Reason: Dyspepsia Stop: 08/28/19 13:20 Apixaban (Eliquis) 5 mg PO 0600,1800 [facility]; Protocol Stop: 08/28/19 18:01 Last Admin: 02/28/19 05:43 Dose: 5 mg Documented by: Aspirin (Aspirin Ec) 81 mg PO DAILY [facility] Stop: 08/29/19 09:01 Last Admin: 02/28/19 09:44 Dose: 81 mg Documented by: Docusate Sodium (Colace) 100 mg PO BID [facility] Stop: 08/28/19 21:01 Last Admin: 02/28/19 09:43 Dose: 100 mg Documented by: Sodium Chloride (0.9 % Sodium Chloride) 1,000 mls @ 75 mls/hr IVC .[id number] [facility] Stop: 08/29/19 12:46 Last Admin: 02/28/19 05:58 Dose: 75 mls/hr Documented by: Metoprolol Succinate (Toprol Xl) 25 mg PO DAILY [facility] Stop: 08/30/19 09:02 Last Admin: 02/28/19 09:43 Dose: 25 mg Documented by: Multivitamins/Calcium (Thera M Plus) 1 tab PO DAILY [facility] Stop: 08/29/19 09:01 Last Admin: 02/28/19 09:44 Dose: 1 tab Documented by: Naloxone HCl (Narcan) 0.4 mg IVP Q2MPRN PRN PRN Reason: SEE COMMENTS Stop: 08/28/19 13:20 Omeprazole (Prilosec) 20 mg PO DAILY PRN; Protocol PRN Reason: Indigestion Stop: 08/28/19 13:18 Ondansetron HCl (Zofran) 4 mg IVP Q8HR PRN PRN Reason: Nausea And Vomiting Stop: 08/28/19 13:20 Promethazine HCl (Phenergan) 12.5 mg IVP Q6HR PRN PRN Reason: Nausea And Vomiting Stop: 08/28/19 13:20 Propafenone HCl (Rhythmol) 225 mg PO BID [facility] Stop: 08/30/19 21:01 Tramadol HCl (Ultram) 50 mg PO Q6HR PRN PRN Reason: Moderate Pain Stop: 08/28/19 13:20 - Imaging and Cardiology Echo: report reviewed - EKG Interpretation EKG results cardiology: other (12 hr tele AVG HR 90, PAFl) Consult Discharge Plan - Plan Instructions: Atrial Flutter (DC), Atrial Fibrillation (DC), Cardioversion (DC) Referrals: Aden Huerta MD [Primary Care Provider] -
--- NOTE | 2019-02-28 13:32 | Discharge Summary ---
Orders not resulted at time of discharge: Pending orders 02/26/19 16:39 Culture,Blood [BC] Routine Date of Encounter: 02/28/19 Time of Encounter: 13:23 - Discharge Diagnosis (1) Atrial flutter Priority: Primary Status: Acute Qualifiers: Atrial flutter type: typical Qualified Code(s): I48.3 - Typical atrial flutter (2) BPH (benign prostatic hyperplasia) Priority: Secondary Status: Acute Qualifiers: Lower urinary tract symptom presence: symptoms present Lower urinary tract symptom detail: urinary hesitancy Qualified Code(s): N40.1 - Benign prostatic hyperplasia with lower urinary tract symptoms; R39.11 - Hesitancy of micturition (3) Palpitations Priority: Secondary Status: Acute (4) History of atrial fibrillation Priority: Secondary Status: Chronic Hospital course: Mr. Coles is a 68 year old male with hx of afib/flutter presented with palpatations and found to be in atrial flutter s/p successful cardioversion back to NSR with resolution of symptoms. Cardiology was consulted and recommended change from Metoprolol tartrate to succinate. QTC prolonged on tid Rhythmol therapy so instructed to go down to bid and follow-up with cardiology for further medication management. Also, no indication for ASA and in setting of NOAC use high risk for bleeding so this was discontinued. Discharge discussed with: patient - Time Spent with Patient Total time spent providing and/or coordinating discharge services: 25 minutes Time spent: Less than 30 minutes, Greater than 30 minutes - Discharge Medications Prescriptions: New Metoprolol XL (24 HR) Succ [Toprol Xl] 25 mg PO DAILY #30 tab.er.24h Continued Multivitamin [One Daily Multivitamin] 1 tab PO DAILY FSH/Flx/Prm/Blk/Bor/Om3,6,9 #6 [Nuak-Rspu-Vjdcsl Oils Softgel] 800 mg PO DAILY Apixaban [Eliquis] 5 mg PO BID Omeprazole [PriLOSEC] 20 mg PO DAILY PRN PRN Reason: Indigestion Tamsulosin HCl 0.4 mg PO DAILY Changed Propafenone [Rhythmol] 150 mg PO BID #60 tablet Discontinued Aspirin [Lo-Dose Aspirin EC] 81 mg PO DAILY Metoprolol [Lopressor] 25 mg PO BID #60 tablet Home Medications: Apixaban [Eliquis] 5 mg PO BID 01/29/19 [History] FSH/Flx/Prm/Blk/Bor/Om3,6,9 #6 [Fvzz-Jzlp-Zbpzzv Oils Softgel] 800 mg PO DAILY 01/29/19 [History] Multivitamin [One Daily Multivitamin] 1 tab PO DAILY 01/29/19 [History] Omeprazole [PriLOSEC] 20 mg PO DAILY PRN 01/29/19 [History] Tamsulosin HCl 0.4 mg PO DAILY 02/26/19 [History] Metoprolol XL (24 HR) Succ [Toprol Xl] 25 mg PO DAILY #30 tab.er.24h 02/28/19 [Rx] Propafenone [Rhythmol] 150 mg PO BID #60 tablet 02/28/19 [Rx] Allergies/Adverse Reactions: Allergy/AdvReac Type Severity Reaction Status Date / Time No Known Allergies Allergy Verified 02/26/19 22:50 Date of admission: 02/26/19 12:33 Primary care physician: Aden Huerta MD Consults: 02/26/19 13:22 Consult to Cardiology [CONS] Routine Comment: Consulting Provider: Cardiology Chloe Reason for Consult: tachy Call Completed: Yes - Constitutional Vitals: Temp Pulse Resp BP Pulse Ox 98.2 F 85 18 101/75 97 02/28/19 12:02 02/28/19 12:02 02/28/19 12:02 02/28/19 12:02 02/28/19 12:02 General appearance: Present: A&O X 3 Exam: General: Ill-appearing and in no acute distress HEENT: No erythema of posterior pharynx. No exudates. Lymphatics: No mandibular or cervical lymphadenopathy Cardiovascular: RRR. No murmurs. No chest wall tenderness. Lungs: Clear to auscelltation bilaterally. Regular chest rise. Abdomen: Non-tender. No rebound or gaurding. Nl bowel sounds. Extremities: No edema. 2+ pulses radial and pedal pulses Skin: No rahses, abrasions, or contusions. Nl cap refill. Psych: Nl attention. A&Ox3 Neuro: inflated pad buffer II-XII intact. 5/5 strength. Sensation to light touch and pinprick intact. - Patient Status Disposition: Home, Self-Care Condition: Good Functional capacity at discharge: independent ambulation - Discharge Instructions Instructions: Atrial Flutter (DC), Atrial Fibrillation (DC), Cardioversion (DC) Follow Up With: Aden Huerta MD [Primary Care Provider] -
--- NOTE | 2019-02-28 21:15 | Electrocardiograph Report ---
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
--- NOTE | 2019-03-01 11:58 | Electrocardiograph Report ---
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
--- NOTE | 2019-03-01 12:11 | Electrocardiograph Report ---
[address] [address] Test Date: 2019-02-27 Pat Name: Elder Coles Department: 111 Room: 2N1 Gender: M Stores Naval: : 1950 Requested By: Shahid Bucio Order Number: [id number] Reading MD: Devendra Torres Measurements Intervals [place] Rate: 117 P: [place]: 0 QRS: -43 QRSD: 118 T: 263 QT: 422 QTc: 491 Interpretive Statements ATRIAL FLUTTER/TACHYCARDIA WITH RAPID VENTRICULAR RESPONSE MARKED LEFT AXIS DEVIATION MODERATE INTRAVENTRICULAR CONDUCTION DELAY Electronically Signed On 03-01-2019 12:10:09 EDT by Devendra Torres
--- NOTE | 2019-03-01 12:20 | Electrocardiograph Report ---
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
== END 2019-02-28 14:49 | disposition home or self-care (01) ==
LOC: 2NENU 10:09 → EMEROOARM 10:09 → 2NENU 13:19
PROVIDERS: ADMIT Internal Medicine; ATTEND Internal Medicine